=== PATIENT | female | born 1985 | race Caucasian/White ===

== ENCOUNTER 2017-11-16 06:39 | Emergency (ER) | payer BC ==
--- NOTE | 2017-11-16 07:11 | Emergency Department Record ---
History of Present Illness - General Chief Complaint: Neck Injury/Pain Stated Complaint: NECK/SHOULDER PAIN Time Seen by Provider: 11/16/17 06:42 Source: Patient Mode of Arrival: Ambulatory Limitations: No limitations - History of Present Illness Initial Comments: 32 yo female presents with neck pain down to the shoulder on the left the last three days. No specific injury. She does sit at a chair all day at work. No numbness tingling or weakness. NO prior surgery of the neck. No fevers. MD Complaint: Neck pain Onset/Timin -: Days(s) Place: Work Radiation: Left shoulder Severity: Constant, Similar to prior neck pain Severity scale (1-10): 8 Quality: Other Consistency: Constant, Intermittent Improves With: Cold therapy, Heat therapy, Immobilization, Movement, Remaining still, Rest supine Worsens With: Immobilization, Movement of neck, Rest Associated Symptoms: None Treatments Prior to Arrival: Ibuprofen, Cold therapy, Heat therapy - Related Data Previous Rx's Medication Instructions Recorded Cyclobenzaprine HCl [Flexeril] 10 mg PO TID #15 tablet 11/16/17 Naproxen [Naprosyn] 500 mg PO Q12H #25 tab. 11/16/17 Allergies Allergy/AdvReac Type Severity Reaction Status Date / Time acetaminophen [From Vicodin] Allergy Severe closes Verified 11/16/17 06:43 throat hydrocodone bitartrate Allergy Severe closes Verified 11/16/17 06:43 [From Vicodin] throat Travel Screening - Travel/Exposure Within Last 30 Days Have you traveled within the last 30 days?: No - Travel/Exposure Within Last Year Have you traveled outside the [place] in the last year?: No - Additonal Travel Details Have you been exposed to anyone with a communicable illness?: No - Travel Symptoms Symptom Screening: None Review of Systems Constitutional: Denies: Chills, Fever, Weakness Eyes: Denies: Eye discharge ENT: Denies: Congestion Respiratory: Denies: Cough, Dyspnea, Hemoptysis, Stridor, Wheezes Cardiovascular: Denies: Chest pain, Palpitations, Syncope Endocrine: Denies: Fatigue Gastrointestinal: Denies: Abdominal pain, Diarrhea, Nausea, Vomiting Genitourinary: Denies: Dysuria, Urgency Musculoskeletal: Reports: Myalgia, Neck pain Skin: Denies: Bruising, Change in color, Rash Neurological: Denies: Numbness, Paresthesias, Tingling, Tremors, Vertigo, Weakness Psychiatric: Denies: Anxiety Hematological/Lymphatic: Denies: Blood Clots, Easy bleeding, Easy bruising, Swollen glands Past Medical History - SOCIAL HISTORY Smoking Status: Current every day smoker Alcohol Use: None Drug Use: None - RESPIRATORY Hx Respiratory Disorders: Yes Hx Asthma: Yes - CARDIOVASCULAR Hx Cardio Disorders: No - NEURO Hx Neuro Disorders: No - GI Hx GI Disorders: No - Hx Genitourinary Disorders: No - ENDOCRINE Hx Endocrine Disorders: No - MUSCULOSKELETAL Hx Musculoskeletal Disorders: No - PSYCH Hx Psych Problems: No - HEMATOLOGY/ONCOLOGY Hx Hematology/Oncology Disorders: No Family Medical History Any Significant Family History?: No Physical Exam - General General Appearance: Alert, Oriented x3, Cooperative, No acute distress - Head Head exam: Atraumatic, Normal inspection - Eye Eye exam: Normal appearance. negative: Conjunctival injection, Scleral icterus - ENT ENT exam: Normal exam, Mucous membranes moist Ear exam: Normal external inspection Nasal Exam: Normal inspection Mouth exam: Normal external inspection Teeth exam: Normal inspection Throat exam: Normal inspection. negative: Tonsillar erythema, Tonsillar exudate - Neck Neck exam: Normal inspection, Tenderness, Other (tnder left paraspinal, normal inspection, decreased ROM due to spasm). negative: Full ROM, Lymphadenopathy, Thyromegaly - Respiratory Respiratory exam: Normal lung sounds bilaterally. negative: Respiratory distress - Cardiovascular Cardiovascular Exam: Regular rate, Normal rhythm, Normal heart sounds Peripheral Pulses: 2+: Radial (L) - GI/Abdominal GI/Abdominal exam: Soft - Rectal Rectal exam: Deferred - exam: Deferred - Extremities Extremities exam: Normal inspection, Full ROM, Normal capillary refill. negative: Joint swelling, Pedal edema, Tenderness Image of Full Body: 1 - tender in the soft tissue left paraspinal, normal inspection, bones midline - Back Back exam: Reports: Normal inspection, Full ROM. Denies: CVA tenderness (R), CVA tenderness (L), Muscle spasm, Paraspinal tenderness, Rash noted, Tenderness , Vertebral tenderness - Neurological Neurological exam: Alert, Normal gait, Oriented X3, Reflexes normal, Other ( left correspondent, OK sign finger abduction, wrist extension intact, sensation intact). negative: Motor sensory deficit - Psychiatric Psychiatric exam: Normal affect, Normal mood - Skin Skin exam: Dry, Intact, Normal color, Warm Course Vital Signs 11/16/17 06:44 Temperature 98.8 F Pulse Rate [ 101 H Pulse Ox Probe] Respiratory 20 Rate Blood Pressure 117/79 [Right Arm] Pulse Ox 98 Disposition Disposition: Discharge Clinical Impression: Cervical strain, acute Qualifiers: Encounter type: initial encounter Qualified Code(s): S16.1XXA - Strain of muscle, fascia and tendon at neck level, initial encounter Condition: (1) Good Instructions: Cervical Sprain (ED) Additional Instructions: Call your doctor for close follow up of the joint pains you have been having over the last 2-3 months Return if worse, numbness or tingling, weakness or any new concerns Prescriptions: Cyclobenzaprine HCl [Flexeril] 10 mg PO TID #15 tablet Naproxen [Naprosyn] 500 mg PO Q12H #25 tab. Time of Disposition: 07:14 Quality - Quality Measures Quality Measures: N/A - Blood Pressure Screening Does Patient Have Any of the Following: No Blood Pressure Classification: Normal BP Reading Systolic Measurement: 117 Diastolic Measurement: 79 Screening for High Blood Pressure: < Normal BP, F/U Not Required > [G8783]
[2017-11-16] MEDS ORDERED: NAPROXEN 250 MG TABLET PO ONE (07:13)
[2017-11-16] MEDS ORDERED: CYCLOBENZAPRINE 10MG TABLET PO ONE (07:13)
== END 2017-11-16 07:36 | disposition home or self-care (01) ==
LOC: ER 06:39
DX: S16.1XXA Strain of muscle, fascia and tendon at neck level, initial encounter (principal); M25.512 Pain in left shoulder; F17.210 Nicotine dependence, cigarettes, uncomplicated; X58.XXXA Exposure to other specified factors, initial encounter; Y99.0 Civilian activity done for income or pay
CPT/HCPCS: 99282

== ENCOUNTER 2018-09-16 16:24 | Emergency (ER) | payer BC ==
[2018-09-16] MEDS ORDERED: KETOROLAC 30 MG/ML VIAL IM ONE (16:44)
--- NOTE | 2018-09-16 16:51 | Emergency Department Record ---
History of Present Illness - General Chief complaint: Pain Stated complaint: LT HIP PAIN Time Seen by Provider: 09/16/18 16:41 Source: Patient Mode of Arrival: Wheelchair Limitations: No limitations - History of Present Illness Initial comments: The patient is here due to L hip pain for one day. The onset was yesterday and the pain is worse today. The patient does have a hx of RA and has had pain issues like this in the past. She did start Prednisone yesterday but is worse today. She denies any hx of trauma, injury, fever, chills, or leg numbness or weakness. The patient denies any chance of and did have a normal menses a week ago. MD Complaint: Joint pain Onset/Timin -: Days(s) Location: Left, Other History of Same: Yes Radiation: Distal Severity scale (1-10): 8 Quality: Sharp Consistency: Constant Improves with: Nothing Worsens with: Walking, Weight bearing Associated Symptoms: Denies other symptoms - Related Data Home Medications Medication Instructions Recorded Confirmed Last Taken Bupropion HCl [Bupropion Xl] 150 mg PO DAILY 09/16/18 09/16/18 Unknown Prednisone [Prednisone 5Mg] 5 mg PO DAILY 09/16/18 09/16/18 Unknown Previous Rx's Medication Instructions Recorded Naproxen [Naprosyn] 500 mg PO BID #14 tablet. 09/16/18 Prednisone [Prednisone 20Mg] 40 mg PO DAILY #8 tab 09/16/18 Allergies Allergy/AdvReac Type Severity Reaction Status Date / Time acetaminophen [From Vicodin] Allergy Severe closes Verified 11/16/17 06:43 throat hydrocodone bitartrate Allergy Severe closes Verified 11/16/17 06:43 [From Vicodin] throat Travel Screening - Travel/Exposure Within Last 30 Days Have you traveled within the last 30 days?: No Review of Systems Constitutional: Denies: Chills, Fever Eyes: Denies: Eye discharge ENT: Denies: Congestion Respiratory: Denies: Cough, Dyspnea Past Medical History - SOCIAL HISTORY Smoking Status: Current every day smoker - RESPIRATORY Hx Respiratory Disorders: Yes Hx Asthma: Yes - CARDIOVASCULAR Hx Cardio Disorders: No - NEURO Hx Neuro Disorders: No - GI Hx GI Disorders: No - Hx Genitourinary Disorders: No - ENDOCRINE Hx Endocrine Disorders: No - MUSCULOSKELETAL Hx Musculoskeletal Disorders: Yes Hx Arthritis: Yes (RA) - PSYCH Hx Psych Problems: No - HEMATOLOGY/ONCOLOGY Hx Hematology/Oncology Disorders: No Family Medical History Any Significant Family History?: No Physical Exam - General General Appearance: Alert, Oriented x3, Cooperative, No acute distress - Head Head exam: Atraumatic, Normocephalic, Normal inspection - Eye Eye exam: Normal appearance, PERRL - Neck Neck exam: Normal inspection, Full ROM. negative: Tenderness - Respiratory Respiratory exam: Normal lung sounds bilaterally. negative: Respiratory distress - Cardiovascular Cardiovascular Exam: Regular rate, Normal rhythm, Normal heart sounds - GI/Abdominal GI/Abdominal exam: Soft, Normal bowel sounds. negative: Tenderness - Extremities Extremities exam: Normal inspection, Normal capillary refill. negative: Full ROM (There is decreased ROM of the L hip due to pain.), Tenderness - Back Back exam: Reports: Normal inspection. Denies: Paraspinal tenderness, Vertebral tenderness - Neurological Neurological exam: Alert. negative: Motor sensory deficit Course Vital Signs 09/16/18 16:34 Temperature 98.4 F Pulse Rate 85 Respiratory 97 H Rate Blood Pressure 108/64 Pulse Ox 97 - Reevaluation(s) Reevaluation #1: The patient is doing better at this time. Her pain is improved and she is able to get up and walk easier with much less discomfort. I did discuss the neg xrays with the patient and the need for F/U. 09/16/18 17:48 Medical Decision Making - Data Complexity MDM Data: X-Ray Ordered and/or Reviewed - Radiology Data Radiology results: Report reviewed (L Hip: Neg per Rad.) Disposition Disposition: Discharge Clinical Impression: Hip pain, acute Qualifiers: Laterality: left Qualified Code(s): M25.552 - Pain in left hip Disposition: Home, Self-Care Condition: (2) Stable Instructions: Hip Pain (ED) Additional Instructions: Please increase the Prednisone for 4 more days. Please see your family doctor later this week or early next week for recheck. Return to the ER for any worsening symptoms, fever, weakness or rashes. Prescriptions: Naproxen [Naprosyn] 500 mg PO BID #14 tablet. Prednisone [Prednisone 20Mg] 40 mg PO DAILY #8 tab Forms: Patient Portal Access Time of Disposition: 17:50 Quality - Quality Measures Quality Measures: N/A - Blood Pressure Screening View Details: Yes Does Patient Have Any of the Following: No Blood Pressure Classification: Normal BP Reading Systolic Measurement: 108 Diastolic Measurement: 64 Screening for High Blood Pressure: < Normal BP, F/U Not Required > [G3103]
[2018-09-16] MEDS ORDERED: PREDNISONE 20 MG TAB PO ONE (17:47)
--- NOTE | 2018-09-18 11:13 | RADIOLOGY REPORT ---
DATE: 09/16/2018 at 4:53 p.m. EXAM: LEFT HIP WITH AP PELVIS. HISTORY: Left hip began hurting yesterday. Rheumatoid arthritis. No history of trauma indicated. TECHNIQUE: AP of the pelvis, AP and lateral of the left hip. COMPARISON: None. FINDINGS: There is no fracture, dislocation, or destructive lesion seen involving the left hip. No degenerative arthritis is seen. However, when the left hip as compared with the right hip in the AP projection, joint space on the left may be minimally decreased which could represent some early changes of rheumatoid arthritis. IMPRESSION: 1. THERE MAY BE SLIGHT NARROWING OF THE JOINT SPACE ON THE LEFT COMPARED TO THE RIGHT WHICH MAY REPRESENT EARLY CHANGES OF RHEUMATOID ARTHRITIS GIVEN THE HISTORY. 2. ELSEWHERE THE LEFT HIP APPEARS NEGATIVE. JOB NUMBER: [id number] [facility]
== END 2018-09-16 18:10 | disposition home or self-care (01) ==
LOC: ER 16:24
DX: M25.552 Pain in left hip (principal); M06.9 Rheumatoid arthritis, unspecified; F17.210 Nicotine dependence, cigarettes, uncomplicated
CPT/HCPCS: 99283; 96372; 99284; 73502; J1885; J7512